=== PATIENT | female | born 2000 ===

== ENCOUNTER 2021-03-11 02:49 | Emergency (ER) | payer BC ==
[2021-03-11] MEDS ORDERED: Ibuprofen 600 MG Tab PO ONE (03:44)
[2021-03-11] MEDS ORDERED: ALPRAZolam 0.25 MG Tab PO ONE (03:49)
--- NOTE | 2021-03-11 05:31 | US ---
CLINICAL HISTORY: 21-year-old woman presenting to the emergency department for evaluation of a new palpable lump in the RIGHT breast at 10 o`clock. And RIGHT axillary lymphadenopathy. She reports a fibroadenoma was removed from the RIGHT breast at the 6 o`clock position and reports a benign biopsy of a mass in the inner RIGHT breast. No symptoms are reported in the LEFT breast however, imaging of the LEFT breast was requested by the emergency department for comparison. COMPARISON: Targeted RIGHT breast ultrasound 10/25/2018 and images from ultrasound-guided RIGHT breast biopsy 12/01/2018. TECHNIQUE: Real-time ultrasound imaging of the BILATERAL breasts with imaging documentation. Scanning was performed by the technologist. FINDINGS: Distance from the nipple in centimeters was not provided in the image annotations. RIGHT breast: At 10 o`clock in zone 3 there is a 2.4 x 1.5 x 2.5 cm oval, circumscribed, hypoechoic mass with vascularity. At 3 o`clock in zone 3 there is a 3.3 x 1.7 x 3.2 cm oval, circumscribed, hypoechoic mass with vascularity. This appears to be the same mass which was labeled at the 2:30 o`clock position on the prior exam where it measured 2.1 x 1.2 x 2.2 cm. This was biopsied with reportedly benign results. Normal fibroglandular tissue is seen on images from the RIGHT breast at 6 o`clock and 8 o`clock. LEFT breast: Images of the LEFT breast at 12 o`clock, 3 o`clock, 6 o`clock and 9 o`clock show normal dense fibroglandular tissue. No cystic or solid mass is visualized on the provided images. IMPRESSION: 1. The mass at 3 o`clock in the RIGHT breast measures up to 3.3 cm and has increased in size. This was biopsied under ultrasound guidance in 2019 with reportedly benign results. 2. There is a newly palpable 2.5 cm mass at 10 o`clock in the RIGHT breast. 3. No sonographic evidence of malignancy in the LEFT breast on the provided images. 4. No images of the RIGHT axilla were provided. RECOMMENDATIONS: 1. The mass at 3 o`clock in the RIGHT breast (previously labeled at 2:30) has increased in size. Recommend correlation with previous pathology report. Surgical consultation is also recommended for consideration of excision given the increase in size. 2. Recommend ultrasound-guided biopsy of the 2.5 cm palpable mass at 10 o`clock in the RIGHT breast. 3. If there is continued concern for RIGHT axillary lymphadenopathy targeted RIGHT axillary ultrasound should be performed. BI-RADS: Category 4: Suspicious. The referring physician`s office will contact the patient to schedule. Dictated by Shannon Bear MD @ 03/13/2021 12:15:05 PM RJ/Dictated by: Shannon Bear MD @ 03/13/2021 12:15:00 PM (Electronically Signed)
--- NOTE | 2021-03-11 05:37 | EDM.PDOC ---
ED HPI GENERAL MEDICAL PROBLEM - General Chief Complaint: General Stated Complaint: BREAST PAIN Time Seen by Provider: 03/11/21 03:12 - History of Present Illness INITIAL COMMENTS - FREE TEXT/NARRATIVE: CHIEF COMPLAINT(S): Breast pain HISTORY OF PRESENT ILLNESS: This is a 21-year-old woman with a past medical history of right breast fibroadenoma who comes to the emergency department with a chief complaint of breast pain. The patient states that over the last week she has noticed that she has additional lump in her right breast. She states that she has had this evaluated before and was diagnosed with fibroadenoma. However she states that she is experiencing some right armpit pain and pain on the anterior right chest wall which she describes as hardened lymph nodes. She states that she did recently have a sore throat which she was given Mucinex for and has since improved. She states that she has had some weight loss but denies any night sweats. She denies any family history of breast cancer. She states that she is just concerned because there is a new lump. She states that the lump is not tender and she denies any nipple discharge. She denies any symptoms such as chest pain, shortness of breath, abdominal pain, nausea or vomiting. She describes the pain as achy. She states the pain is worse when you touch her armpit and her chest wall. She denies any relieving factors. She denies any radiation of this pain. She denies any facial swelling. REVIEW OF SYSTEMS: Constitutional: Positive for tender lymphadenopathy/hardened lymphadenopathy of the right chest wall and armpit. Denies fever, chills. Eyes: Denies eye pain Ears, Nose, Mouth, & Throat: Denies earache Cardiovascular: Denies chest pain Breast: Positive for right-sided breast lump and pain Respiratory: Denies shortness of breath Gastrointestinal: Denies Nausea, vomiting, diarrhea, hematochezia. Genitourinary: Denies hematuria Skin:Denies a rash MSK: Denies joint pain Neurological: Denies blurred vision Psychiatric: Denies depression PAST MEDICAL HISTORY: As per history of present illness and as reviewed below otherwise noncontributory. SURGICAL HISTORY: As per history of present illness and as reviewed below otherwise noncontributory. SOCIAL HISTORY: As per history of present illness and as reviewed below otherwise noncontributory. FAMILY HISTORY: As per history of present illness and as reviewed below otherwise noncontributory. EXAMINATION OF ORGAN SYSTEMS/BODY AREAS: Constitutional: Blood pressure is 135/82, heart rate 84, respiratory rate 16 with an oxygen saturation 96% on room air. Temperature 36.2 General: Young woman who is in no acute distress Psychiatric: Appears very anxious. But is cooperative. Eyes: No scleral icterus or conjunctival erythema ENMT: Moist mucous membranes. No pharyngeal erythema no tonsillar exudates or swelling. Shotty lymphadenopathy of the right anterior neck which is tender to palpation. No obvious swelling. Neck is supple. No neck masses. Breast: Breast examination was performed with RN lakshmi Marshall in presence. There is evidence of prior scar around the right areola. There was no nipple drainage. No pseudoorange. There is a lump which is nontender and mobile in the 3 o'clock position of the right breast. There is an additional lump which is visible on the 9 o'clock position of the right breast. The right breast is not tender however the right upper chest wall is tender. There is no obvious axillary lymphadenopathy or supraclavicular lymphadenopathy. Cardiovascular: Regular, rate, and rhythm. No gallops, murmurs, or rubs. Bilateral upper extremity pulses symmetric and intact. No peripheral edema. No JVD. No venous engorgement of the right anterior chest or right arm. Musculoskeletal: Normal range of motion. Skin: No lesions or abrasions. Neurological: Alert, GCS 15 MEDICAL DECISION MAKING AND COURSE IN THE ED WITH INTERPRETATION/REVIEW OF DIAGNOSTIC STUDIES: This is a 21-year-old man with a past medical history of fibroid adenoma of the right breast who comes to the emergency department with acute new onset lump of the right breast with right anterior chest wall and axillary tenderness with shotty lymphadenopathy of the anterior cervical chain without any supraclavicular lymphadenopathy. This mass is mobile therefore I do believe this is likely a fibroadenoma however given the tenderness we will obtain bilateral breast ultrasound to evaluate for any abnormality. The patient does appear to be anxious and does not want any needles therefore I did offer the patient ibuprofen by mouth and Xanax 0.25 mg to obtain the ultrasound. She was amenable to this plan. The radiological images were viewed by myself along with reading the report from the radiologist. Bilateral breast ultrasound reveals a 3.3 x 1.7 cm hypoechoic mass in the 3 o'clock position of the right breast. In the 9 o'clock position of the right breast there is an additional hypoechoic mass measuring 2.5 x 1.5 cm with internal blood flow. Recommending tissue biopsy. While awaiting ultrasound results I did return back to the room to discuss the results with the patient however the patient left without completing treatment. I did try to contact the patient at the number listed however this is a nonworking number. Therefore, we will send a certified letter to the patient to let her know about the results and to follow-up for tissue biopsy. DISPOSITION: The patient left without completing treatment CONDITION: Fair PROCEDURES: None FINAL IMPRESSION(S)/DIAGNOSES: 1. Acute right breast mass Bijan Mercedes M.D. Right Breast Pain Score (Numeric/FACES): 4 - Related Data Allergies Allergy/AdvReac Type Severity Reaction Status Date / Time No Known Allergies Allergy Verified 03/11/21 03:07 Home Meds: Home Meds . 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 Musculoskeletal History: Reports: Other (See Below) Other Musculoskeletal History: fibroid tumors Neurological History: Reports: None Psychiatric History: Reports: None Endocrine/Metabolic History: Reports: None Hematologic History: Reports: None Immunologic History: Reports: None Oncologic (Cancer) History: Reports: None Dermatologic History: Reports: None - Infectious Disease History Infectious Disease History: Reports: None - Past Surgical History Head Surgeries/Procedures: Reports: None HEENT Surgical History: Reports: None Cardiovascular Surgical History: Reports: None GI Surgical History: Reports: None Endocrine Surgical History: Reports: None Musculoskeletal Surgical History: Reports: None Social & Family History - Family History Family Medical History: No Pertinent Family History - Tobacco Use Tobacco Use Status *Q: Never Tobacco User Second Hand Smoke Exposure: No - Caffeine Use Caffeine Use: Reports: Energy Drinks - Recreational Drug Use Recreational Drug Use: No ED ROS GENERAL - Review of Systems Review Of Systems: See Below ED EXAM, GENERAL - Physical Exam Exam: See Below Course - Vital Signs Last Recorded V/S: Last Vital Signs Temp 36.8 C 03/11/21 04:51 Pulse 84 04/26/21 03:12 Resp 16 03/11/21 03:12 BP 135/82 03/11/21 03:12 Pulse Ox 96 03/11/21 03:12 - Orders/Labs/Meds Meds: Medications Discontinued Medications Generic Name Dose Route Start Last Admin Trade Name Omero PRN Reason Stop Dose Admin Alprazolam 0.25 mg 03/11/21 03:49 03/11/21 04:00 Alprazolam 0.25 Mg Tab PO 03/11/21 03:50 0.25 mg ONETIME ONE Administration Ibuprofen 600 mg 03/11/21 03:44 03/11/21 03:51 Ibuprofen 600 Mg Tab PO 03/11/21 03:45 600 mg ONETIME ONE Administration Departure - Departure Time of Disposition: 05:36 Disposition: Home, Self-Care 01 Condition: Fair Clinical Impression: Breast mass in female - Discharge Information *PRESCRIPTION DRUG MONITORING PROGRAM REVIEWED*: No *COPY OF PRESCRIPTION DRUG MONITORING REPORT IN PATIENT DUANE: No Instructions: Fibroadenoma, [id number], Breast Tenderness, Fibrocystic Breast Changes, [id number] Referrals: PCP,None [Primary Care Provider] - Forms: ED Department Discharge Additional Instructions: You were evaluated today on an emergent basis. At this time there was evidence of 2 breast masses which appear similar. I do believe this is likely secondary to a fibroadenoma however it is important that she follow-up with general surgeon for further evaluation. Given the tenderness I do recommend that she use Tylenol and Motrin alternating for the next 2 days and then use as needed after this. If you have any worsening symptoms such as redness over the skin, nipple drainage, and large visible veins of your right arm, chest pain, shortness of breath please return to the emergency department. Please follow-up with surgery within 3 to 5 days. [facility] - General Surgery Professional Building [address] [place] [address], [address] [place] [address] The patient is informed of any results of their evaluation and diagnostic workup and all questions are answered. They are given discharge instructions and return precautions. The patient is stable for discharge. The patient states they understand and agree with the plan and that they will return if their symptoms get worse or if they have any new concerns. The following information is given to patients seen in the emergency department who are being discharged to home. This information is to outline your options for follow-up care. We provide all patients seen in our emergency department with a follow-up referral. The need for follow-up, as well as the timing and circumstances, are variable depending upon the specifics of your emergency department visit. If you don't have a primary care physician on staff, we will provide you with a referral. We always advise you to contact your personal physician following an emergency department visit to inform them of the circumstance of the visit and for follow-up with them and/or the need for any referrals to a consulting specialist. The emergency department will also refer you to a specialist when appropriate. This referral assures that you have the opportunity for follow-up care with a specialist. All of these measure are taken in an effort to provide you with optimal care, which includes your follow-up. Under all circumstances we always encourage you to contact your private physician who remains a resource for coordinating your care. When calling for follow-up care, please make the office aware that this follow-up is from your recent emergency room visit. If for any reason you are refused follow-up, please contact the [facility] Emergency Department at and asked to speak to the emergency department charge nurse. Sepsis Event Note (ED) - Evaluation Sepsis Screening Result: No Definite Risk
== END 2021-03-11 05:41 | disposition home or self-care (01) ==
LOC: MW.ED 02:49
DX: N63.10 Unspecified lump in the right breast, unspecified quadrant (principal)
CPT/HCPCS: 76641; 99285; A9270; 99283

== ENCOUNTER 2021-04-09 11:22 | Day surgery (SDC) | payer BC ==
[~2021-04-09 11:22] MED LIST: Glycopyrrolate 0.2 MG/ML SDV ONE; Ketorolac 30 MG/ML SDV ONE; Lactated Ringers 1,000 ML IV SCH; Lidocaine 2% 5 ML SDV ONE; Midazolam 1 MG/ML 2 ML SDV ONE; Ondansetron 4 MG/2 ML SDV ONE; Propofol 200 MG/20 ML SDV ONE; Sodium Chloride 0.9% 10 ML SDV IV PRN; Sodium Chloride 0.9% 10 ML Syringe FLUSH PRN; Sodium Chloride 0.9% 2.5 ML Syringe FLUSH PRN; ceFAZolin 1 GM in Premix Bag 1 BAG IV ONE; fentaNYL 100 MCG/2 ML SDV ONE
[2021-04-09] MEDS ORDERED: ceFAZolin 1 GM Vial ONE (11:46)
[2021-04-09] MEDS ORDERED: Sodium Chloride 0.9% 20 ML ONE (11:46)
--- NOTE | 2021-04-09 12:06 | PCM.PREANE ---
Preanesthetic Assessment - Anesthesia/Transfusion/Family Hx Anesthesia History: Prior Anesthesia Without Reaction Family History of Anesthesia Reaction: No Transfusion History: No Prior Transfusion(s) - Review of Systems General: No Symptoms Pulmonary: No Symptoms Cardiovascular: No Symptoms Gastrointestinal: No Symptoms Neurological: No Symptoms Other: Reports: None - Physical Assessment NPO Status Date: 04/09/21 NPO Status Time: 00:01 Vital Signs: Last Vital Signs Temp Pulse 73 04/09/21 11:30 Resp 15 04/09/21 11:30 BP 128/68 04/09/21 11:30 Pulse Ox 97 04/09/21 11:30 Height: 5 ft 4 in Weight: 111 lb ASA Class: 2 Mental Status: Alert & Oriented x3 Airway Class: Mallampati = 2 Dentition: Reports: Normal Dentition ROM/Head Extension: Full Lungs: Clear to Auscultation, Normal Respiratory Effort Cardiovascular: Regular Rate, Regular Rhythm - Allergies Allergies/Adverse Reactions: Allergies Allergy/AdvReac Type Severity Reaction Status Date / Time No Known Allergies Allergy Verified 04/03/21 12:45 - Acknowledgements Anesthesia Type Planned: General Anesthesia Pt an Appropriate Candidate for the Planned Anesthesia: Yes Alternatives and Risks of Anesthesia Discussed w Pt/Guardian: Yes Pt/Guardian Understands and Agrees with Anesthesia Plan: Yes Additional Comments: npo after mn hayfever bmi 20 tob none etoh none yes THC vapes par no questions PreAnesthesia Questionnaire HEENT History: Reports: Other (See Below) Other HEENT History: wears glasses Cardiovascular History: Reports: None Respiratory History: Reports: None Gastrointestinal History: Reports: None Genitourinary History: Reports: None 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: Reports: None Musculoskeletal History: Reports: None Other Musculoskeletal History: fibroid tumors Neurological History: Reports: None Psychiatric History: Reports: Anxiety Endocrine/Metabolic History: Reports: None Hematologic History: Reports: None Immunologic History: Reports: None Oncologic (Cancer) History: Reports: None Dermatologic History: Reports: None - Infectious Disease History Infectious Disease History: Reports: None - Past Surgical History Head Surgeries/Procedures: Reports: None HEENT Surgical History: Reports: Oral Surgery Other HEENT Surgeries/Procedures: wisdom teeth removed Cardiovascular Surgical History: Reports: None Respiratory Surgical History: Reports: None GI Surgical History: Reports: None Female Surgical History: Reports: Breast Biopsy Endocrine Surgical History: Reports: None Neurological Surgical History: Reports: None Musculoskeletal Surgical History: Reports: None Oncologic Surgical History: Reports: None Dermatological Surgical History: Reports: None - SUBSTANCE USE Tobacco Use Status *Q: Current Every Day Tobacco User Tobacco Use Within Last Twelve Months: Vaping Recreational Drug Use History: Yes Recreational Drug Type: Reports: Marijuana/Hashish - HOME MEDS Home Medications: Home Meds Ergocalciferol (Vitamin D2) [Vitamin D2] 50,000 unit PO ASDIRECTED 04/03/21 [History] - CURRENT (IN HOUSE) MEDS Current Meds: Current Medications Lactated Ringer's (Ringers, Lactated) 1,000 mls @ 125 mls/hr IV ASDIRECTED MENA Last Admin: 04/09/21 12:01 Dose: 125 mls/hr Documented by: Sodium Chloride (Sodium Chloride 0.9% 2.5 Ml Syringe) 2.5 ml FLUSH ASDIRECTED PRN PRN Reason: Keep Vein Open Sodium Chloride (Sodium Chloride 0.9% 10 Ml Sdv) 10 ml IV ASDIRECTED PRN PRN Reason: IV Use Sodium Chloride (Sodium Chloride 0.9% 10 Ml Syringe) 10 ml FLUSH ASDIRECTED PRN PRN Reason: Keep Vein Open Discontinued Medications Cefazolin Sodium (Cefazolin 1 Gm Vial) Confirm Administered Dose 1 gm .ROUTE .STK-MED ONE Stop: 04/09/21 11:47 Fentanyl (Fentanyl 100 Mcg/2 Ml Sdv) Confirm Administered Dose 100 mcg .ROUTE .STK-MED ONE Stop: 04/09/21 10:47 Glycopyrrolate (Glycopyrrolate 0.2 Mg/Ml Sdv) Confirm Administered Dose 0.2 mg .ROUTE .STK-MED ONE Stop: 04/09/21 10:49 Cefazolin Sodium/Dextrose 1 gm (/ Premix) 50 mls @ 100 mls/hr IV ONETIME ONE Stop: 04/08/21 09:07 Sodium Chloride (Normal Saline) Confirm Administered Dose 20 mls @ as directed .ROUTE .STK-MED ONE Stop: 04/09/21 11:47 Ketorolac Tromethamine (Ketorolac 30 Mg/Ml Sdv) Confirm Administered Dose 30 mg .ROUTE .STK-MED ONE Stop: 04/09/21 10:49 Lidocaine (Lidocaine 2% 5 Ml Sdv) Confirm Administered Dose 5 ml .ROUTE .STK-MED ONE Stop: 04/09/21 10:49 Midazolam HCl (Midazolam 1 Mg/Ml 2 Ml Sdv) Confirm Administered Dose 2 mg .ROUTE .STK-MED ONE Stop: 04/09/21 10:47 Ondansetron HCl (Ondansetron 4 Mg/2 Ml Sdv) Confirm Administered Dose 4 mg .ROUTE .STK-MED ONE Stop: 04/09/21 10:49 Propofol (Propofol 200 Mg/20 Ml Sdv) Confirm Administered Dose 200 mg .ROUTE .STK-MED ONE Stop: 04/09/21 10:47
[2021-04-09] MEDS ORDERED: Lidocaine 1% 20 ML MDV ONE (12:56)
[2021-04-09] MEDS ORDERED: Bupivacaine 0.5% 30 ML SDV ONE (12:56)
[2021-04-09] MEDS ORDERED: fentaNYL 100 MCG/2 ML SDV IVPUSH PRN (13:49)
[2021-04-09] MEDS ORDERED: Octyl 2-Cyanoacrylate 1 Tube ONE (14:14)
[2021-04-09] MEDS ORDERED: fentaNYL 100 MCG/2 ML SDV ONE (14:32)
--- NOTE | 2021-04-09 14:50 | PCM.OPNOTE ---
- General Post-Op/Procedure Note Date of Surgery/Procedure: 04/09/21 Operative Procedure(s): Right breast mass excision x 2 Findings: Right lateral breast mass on chest wall: Measured 3.5 x 3 x1.5 cm Right medial breast mass: Measured 3.5 x 4 x 2 cm Pre Op Diagnosis: RIght breast fibroadenomas x 2 Post-Op Diagnosis: same Anesthesia Technique: General LMA Primary Surgeon: Tosin Theodore Fluid Replacement, Intraop: 1,000 EBL in mLs: 10 Condition: Good
--- NOTE | 2021-04-09 15:36 | PCM.POSTAN ---
POST ANESTHESIA ASSESSMENT - MENTAL STATUS Mental Status: Alert - VITAL SIGNS Vital Signs: Last Vital Signs Temp 36.6 C 04/09/21 15:25 Pulse 16 L 04/09/21 15:25 Resp 15 04/09/21 15:25 BP 132/60 04/09/21 15:25 Pulse Ox 97 04/09/21 15:25 - RESPIRATORY Respiratory Status: Respiratory Rate WNL - CARDIOVASCULAR CV Status: Pulse Rate WNL - GASTROINTESTINAL GI Status: No Symptoms - POST OP HYDRATION Hydration Status: Adequate & Stable
--- NOTE | 2021-04-09 17:10 | PCM48HPAN ---
Post Anesthesia Note - EVALUATION WITHIN 48HRS OF ANESTHETIC Vital Signs in Normal Range: Yes Patient Participated in Evaluation: Yes Respiratory Function Stable: Yes Airway Patent: Yes Cardiovascular Function Stable: Yes Hydration Status Stable: Yes Pain Control Satisfactory: Yes Nausea and Vomiting Control Satisfactory: Yes Mental Status Recovered: Yes Vital Signs: Last Vital Signs Temp 36.6 C 04/09/21 15:25 Pulse 16 L 04/09/21 15:25 Resp 15 04/09/21 15:25 BP 132/60 04/09/21 15:25 Pulse Ox 97 04/09/21 15:25
--- NOTE | 2021-04-11 13:43 | OR ---
SURGEON: TOSIN THEODORE MD DATE OF PROCEDURE: 04/09/2021 PREOPERATIVE DIAGNOSIS: Right breast mass x2. POSTOPERATIVE DIAGNOSIS: Right breast mass x2. PROCEDURE PERFORMED: Right breast mass excision x2. PRIMARY SURGEON: Tosin Theodore MD ANESTHESIA: General endotracheal anesthesia. FLUIDS: 1000 mL crystalloid. ESTIMATED BLOOD LOSS: 10 mL. FINDINGS: Right lateral breast mass 3.5 cm x 3 cm x 1.5 cm; right medial breast mass 3.5 x 4 x 2 cm. COMPLICATIONS: None. INDICATIONS: The patient is a 21-year-old female with a history of fibroadenomas of the breast. She came to see me a couple of years ago with an enlarging breast mass. A biopsy of this was performed which showed a benign fibroadenoma. The patient decided to just continue to monitor the breast masses. She presented to her primary care provider's office and it was noted that the original breast mass had grown in size and that she had developed another breast mass as well. On ultrasound, these appeared lobular. Given their change, I expressed to the patient the need to excise these. The patient and I discussed the procedure, expected perioperative course, and the risks. She verbalized understanding and wishes to proceed. PROCEDURE IN DETAIL: The patient was brought into the OR and placed on the OR table in supine position. A time-out was completed verifying the patient's name, age, date of , allergies, and procedure to be performed. General endotracheal anesthesia was induced. The right breast and chest wall were then prepped and draped in usual standard fashion. The patient's breasts were inspected. She had 2 firm mobile masses in her right breast, 1 was located medially and 1 was located far laterally in the breast. I decided to start with the right lateral breast lesion. I anesthetized the breast skin with 0.5% Marcaine plain. A 15 blade was used to make an incision along the lateral border of the areola. Using cautery, I dissected down to the junction between the skin and breast tissue. I then undermined laterally towards the breast lesion using cautery. Once I reached the breast mass, it was grasped with an Allis clamp. Using blunt dissection and cautery, I was able to dissect it free from the surrounding tissue. The breast mass was placed on the back field. It appeared firm and encapsulated like a fibroadenoma. It was measured. It measured 3.5 x 3 x 1.5 cm in size. Hemostasis was achieved with electrocautery. The wound was packed with moistened gauze, and I turned my attention to the medial breast mass. Using a 15 blade, I made an incision along the medial areolar border. Again, I dissected down to the level of the junction of the skin and breast tissue using electrocautery. I then dissected medially towards the mass. The mass was grasped with an Allis. Using a combination of blunt dissection and electrocautery, I dissected the mass free from the surrounding tissues. It was placed on the back table. It appeared similar in nature to the other breast mass. It measured 3.5 x 4 x 2 cm in size. Cautery was used to achieve hemostasis. I then closed the wound with interrupted layers of 3-0 Vicryl suture in the subcutaneous fat layer. The skin was closed with a running 4-0 Monocryl stitch. I removed my moistened gauze and inspected my initial operative site. It appeared to be hemostatic. I closed it in a similar manner using deep 3-0 Vicryl stitches and closing the skin with a running 4-0 Monocryl suture. Dermabond and sterile dressings were applied. The patient was extubated and taken to PACU in stable condition. All counts were complete and correct at the end of the case. BABATUNDE ASCENCIO /[id number]
== END 2021-04-09 16:20 | disposition home or self-care (01) ==
LOC: MW.SDS 11:22
PROVIDERS: ATTEND Surgery
DX: D24.1 Benign neoplasm of right breast (principal); Z98.890 Other specified postprocedural states
CPT/HCPCS: 19120; 81025; A9270; J0690; J1885; J2250; J2405; J2704; J3010; J3490; J7120; 00400; 88307